=== PATIENT | male | born 1990 | race Caucasian/White ===

== ENCOUNTER 2018-11-28 16:40 | Emergency (ER) | payer SELFPAY ==
[~2018-11-28] VITALS: Ht 172.7 cm; Wt 89.0 kg
[2018-11-28] MEDS ORDERED: KETOROLAC 60MG/2ML VIAL IM ONE (17:30)
[2018-11-28 17:37] VITALS: BP 136/104
== END 2018-11-28 18:30 | disposition home or self-care (01) ==
LOC: ER 17:00
DX: M79.652 Pain in left thigh (principal); R03.0 Elevated blood-pressure reading, without diagnosis of hypertension; V49.49XA Driver injured in collision with other motor vehicles in traffic accident, initial encounter; Y93.89 Activity, other specified; Y92.488 Other paved roadways as the place of occurrence of the external cause
CPT/HCPCS: 96372; 99283; J1885